=== PATIENT | female | born 1975 | race Caucasian/White ===

== ENCOUNTER 2018-07-16 13:17 | Emergency (ER) | payer MEDICAID, SELFPAY ==
--- NOTE | 2018-07-16 13:22 | W.ED.GENAD ---
Discharge Plan Disposition Patient Disposition: HOME Condition: Fair Discharge Details Chief Complaint: DentalOral Clinical Impression: Dental infection Primary Care Provider: [facility] ED Provider: Enedina Zhao Home Meds and New Rx's Prescriptions: New clindamycin HCl 150 mg capsule 450 mg PO TID Qty: 63 RF: 0 Discharge Instructions Instructions: Dental Abscess (ED) Additional Instructions: Encourage hydration. Tylenol and ibuprofen as needed for discomfort. Stop smoking. Please take clindamycin as prescribed. Even if symptoms improve, please take the entire course. Please keep upcoming appointment with dentist. If you develop fever/chills, increased pain, increased swelling or other new/worsening symptoms please seek care urgently once again. Discharge Data Discharge Date/Time-TO BE ENTERED AT DEPARTURE: 07/16/18 14:14 Medical Decision Making Patient is a 42-year-old female presenting today with chief complaint of dental pain. She reports for the past 3 days she has had pain in the #8 tooth and associated swelling and erythema. She denies any fevers or chills. States that she has been putting pain relieving gel in her dentures which has been helping with discomfort. She is been wearing also dentures that are too large or not compressing the tooth. She is scheduled to have a follow-up on the with a dentist for extraction of infected tooth. On exam, she does have notable swelling and erythema to the gums particularly on the buccal aspect of the tooth. No palpable area of fluctuance to suggest abscess. Patient will be placed on clindamycin. Encourage hydration. We discussed new/worsening symptoms when to seek care urgently once again. She will keep her appointment with dentist. All other questions and concerns were addressed she is in agreement this plan. Patient is status post tubal ligation HPI General Mode of arrival: ambulatory. Date/Time Provider Initiated Documentation: 07/16/18 13:21. Limitations to Documentation: no limitations. Information obtained by: patient and RN notes reviewed. History of Present Illness 42 year old F presents to the emergency department with the chief complaint of right upper dental pain, described as moderate, with intensity rated at 6. Quality is described as burning, and is localized to the mouth. Patient reports no radiation. Patient started experiencing this day(s) (3) and it has been constant. No relieving factors improve symptom(s), No exacerbating factors reported . Patient notes denies cough, diaphoresis, fever/chills, headaches, loss of appetite, nausea/vomiting and rash. Patient did receive the following treatments prior to arrival, NSAID Related Data Home Medications Medication Instructions Recorded Confirmed clindamycin HCl 450 mg PO TID #63 cap 07/16/18 Previous Rx's Medication Instructions Recorded clindamycin HCl 450 mg PO TID #63 cap 07/16/18 Allergies Allergy/AdvReac Type Severity Reaction Status Date / Time bee venom protein (honey bee) Allergy Anaphylaxsi Unverified 07/16/18 13:23 s sibutramine [From Meridia] Allergy Hives Unverified 07/16/18 13:30 Review of Systems Constitutional Reports as per HPI, Denies chills, Denies fatigue, Denies fever(s), Denies headache(s) and Denies poor appetite Eyes Denies change in vision and Denies irritation ENT Reports as per HPI, Reports dental pain, Denies dysphagia, Denies dizziness, Denies dry mouth, Denies ear discharge, Denies otalgia, Reports facial pain, Denies headache(s), Denies hoarseness, Denies lip swelling, Denies nasal congestion, Denies odynophagia and Denies sore throat Cardiovascular Reports as per HPI and Denies chest pain Respiratory Reports as per HPI and Denies cough Gastrointestinal Reports as per HPI, Denies dysphagia, Denies nausea, Denies odynophagia and Denies vomiting Integumentary/Breasts Reports as per HPI, Denies erythema, Denies rash and Denies skin pain Neurologic Reports as per HPI, Denies dizziness and Denies headache(s) Endocrine Denies fatigue Allergic/Immunologic Denies lip swelling [facility] Social History Smoking/Tobacco Use Status: Current every day Alcohol Intake: never Drug use: Daily Substance use type: marijuana Exam Const General: cooperative, healthy appearing, comfortable, no acute distress, well developed and well groomed Nutritional Appearance: average body habitus and well nourished Orientation: alert and awake [facility] Head: normal to inspection, normocephalic and atraumatic Ears: hearing grossly normal bilaterally, external ears normal and TM's normal bilaterally General nose exam: external nose normal and nares normal Face and sinus: normal facial exam, sinuses nontender and face symmetric Mouth: moist mucous membranes, no drooling, no muffled voice, no trismus and No restricted motion Teeth and gingiva: edentulous (one tooth remaining under dentures, #8tooth with erythema, swelling) Throat: posterior oropharynx normal, tonsils normal and uvula midline Eyes General: appearance normal, both eyes and all related structures Neck Neck: normal visual inspection, full ROM, no lymphadenopathy, supple and no anterior neck swelling Resp Effort & Inspection: normal respiratory effort, able to speak in complete sentences and no respiratory distress Auscultation: clear to auscultation bilaterally, no rales, no rhonchi and no wheezes Cardio Rate: regular rate Rhythm: regular rhythm Heart Sounds: S1 normal and S2 normal Skin General skin exam: no rashes or lesions noted Trauma: no lacerations or abrasions Neuro General: alert and awake Cognition: normal cognition Speech: speech normal Gait: normal gait Psych Appearance: grossly normal and well kempt Mental Status: mental status grossly normal Speech and Movement: speech and movement normal
[2018-07-16 13:23] VITALS: BP 123/77; PULSE 85; RESP 18; TEMP 37.1; O2SAT 98
--- NOTE | 2018-07-16 14:03 | ED.GENADUL_ITS ---
Discharge Plan Disposition Patient Disposition: HOME Condition: Fair Discharge Details Chief Complaint: DentalOral Clinical Impression: Dental infection Primary Care Provider: [facility]etteLocal ED Provider: Enedina Zhao Home Meds and New Rx's Prescriptions: New clindamycin HCl 150 mg capsule 450 mg PO TID Qty: 63 RF: 0 Discharge Instructions Instructions: Dental Abscess (ED) Additional Instructions: Encourage hydration. Tylenol and ibuprofen as needed for discomfort. Stop smoking. Please take clindamycin as prescribed. Even if symptoms improve, please take the entire course. Please keep upcoming appointment with dentist. If you develop fever/chills, increased pain, increased swelling or other new/worsening symptoms please seek care urgently once again. Discharge Data Discharge Date/Time-TO BE ENTERED AT DEPARTURE: 07/16/18 14:14 Medical Decision Making Patient is a 42-year-old female presenting today with chief complaint of dental pain. She reports for the past 3 days she has had pain in the #8 tooth and associated swelling and erythema. She denies any fevers or chills. States that she has been putting pain relieving gel in her dentures which has been helping with discomfort. She is been wearing also dentures that are too large or not compressing the tooth. She is scheduled to have a follow-up on the with a dentist for extraction of infected tooth. On exam, she does have notable swelling and erythema to the gums particularly on the buccal aspect of the tooth. No palpable area of fluctuance to suggest abscess. Patient will be placed on clindamycin. Encourage hydration. We discussed new/worsening symptoms when to seek care urgently once again. She will keep her appointment with dentist. All other questions and concerns were addressed she is in agreement this plan. Patient is status post tubal ligation HPI General Mode of arrival: ambulatory . Date/Time Provider Initiated Documentation: 07/16/18 13:21 . Limitations to Documentation: no limitations . Information obtained by: patient and RN notes reviewed . History of Present Illness 42 year old F presents to the emergency department with the chief complaint of right upper dental pain, described as moderate, with intensity rated at 6. Quality is described as burning, and is localized to the mouth. Patient reports no radiation. Patient started experiencing this day(s) (3) and it has been constant. No relieving factors improve symptom(s), No exacerbating factors reported . Patient notes denies cough, diaphoresis, fever/chills, headaches, loss of appetite, nausea/vomiting and rash. Patient did receive the following treatments prior to arrival, NSAID Related Data Home Medications Medication Instructions Recorded Confirmed clindamycin HCl 450 mg PO TID #63 cap 07/16/18 Previous Rx's Medication Instructions Recorded clindamycin HCl 450 mg PO TID #63 cap 07/16/18 Allergies Allergy/AdvReac Type Severity Reaction Status Date / Time bee venom protein (honey bee) Allergy Anaphylaxsi Unverified 07/16/18 13:23 s sibutramine [From Meridia] Allergy Hives Unverified 07/16/18 13:30 Review of Systems Constitutional Reports as per HPI, Denies chills, Denies fatigue, Denies fever(s), Denies headache(s) and Denies poor appetite Eyes Denies change in vision and Denies irritation ENT Reports as per HPI, Reports dental pain, Denies dysphagia, Denies dizziness, Denies dry mouth, Denies ear discharge, Denies otalgia, Reports facial pain, Denies headache(s), Denies hoarseness, Denies lip swelling, Denies nasal congest ion, Denies odynophagia and Denies sore throat Cardiovascular Reports as per HPI and Denies chest pain Respiratory Reports as per HPI and Denies cough Gastrointestinal Reports as per HPI, Denies dysphagia, Denies nausea, Denies odynophagia and Denies vomiting Integumentary/Breasts Reports as per HPI, Denies erythema, Denies rash and Denies skin pain Neurologic Reports as per HPI, Denies dizziness and Denies headache(s) Endocrine Denies fatigue Allergic/Immunologic Denies lip swelling [facility] Social History Smoking/Tobacco Use Status: Current every day Alcohol Intake: never Drug use: Daily Substance use type: marijuana Exam Const General: cooperative, healthy appearing, comfortable, no acute distress, well developed and well groomed Nutritional Appearance: average body habitus and well nourished Orientation: alert and awake [facility] Head: normal to inspection, normocephalic and atraumatic Ears: hearing grossly normal bilaterally, external ears normal and TM's normal bilaterally General nose exam: external nose normal and nares normal Face and sinus: normal facial exam, sinuses nontender and face symmetric Mouth: moist mucous membranes, no drooling, no muffled voice, no trismus and No restricted motion Teeth and gingiva: edentulous (one tooth remaining under dentures, #8tooth with erythema, swelling) Throat: posterior oropharynx normal, tonsils normal and uvula midline Eyes General: appearance normal, both eyes and all related structures Neck Neck: normal visual inspection, full ROM, no lymphadenopathy, supple and no anterior neck swelling Resp Effort & Inspection: normal respiratory effort, able to speak in complete sentences and no respiratory distress Auscultation: clear to auscultation bilaterally, no rales, no rhonchi and no wheezes Cardio Rate: regular rate Rhythm: regular rhythm Heart Sounds: S1 normal and S2 normal Skin General skin exam: no rashes or lesions noted Trauma: no lacerations or abrasions Neuro General: alert and awake Cognition: normal cognition Speech: speech normal Gait: normal gait Psych Appearance: grossly normal and well kempt Mental Status: mental status grossly normal Speech and Movement: speech and movement normal
== END 2018-07-16 14:14 | disposition home or self-care (01) ==
PROVIDERS: Emergency Provider Physician Assistant
DX: K04.7 Periapical abscess without sinus (principal); F17.210 Nicotine dependence, cigarettes, uncomplicated
CPT/HCPCS: 99283

== ENCOUNTER 2018-11-16 13:36 | Emergency (ER) | payer MEDICAID, SELFPAY ==
[2018-11-16 13:41] VITALS: BP 141/88; PULSE 82; RESP 18; TEMP 36.6; O2SAT 99
--- NOTE | 2018-11-16 14:39 | DI.RAD_ITS ---
EXAM: XR SHOULDER RT COMPLETE 2+V INDICATION: shoulder injury. COMPARISON: No exams were available for comparison TECHNIQUE: 2D digital imaging was performed. FINDINGS: Five views were obtained. There is no evidence of fracture or dislocation. IMPRESSION:
--- NOTE | 2018-11-16 15:40 | DI.VRAD_ITS ---
PROCEDURE INFORMATION: Exam: XR Right Shoulder Exam date and time: 11/16/2018 3:02 PM Clinical history: 43 years old, female; Pain; Shoulder; Right TECHNIQUE: Imaging protocol: XR Right shoulder. Views: 2 or more views. COMPARISON: No relevant prior studies available. FINDINGS: Bones/joints: There is no evidence of acute fracture.There is no evidence of malalignment or dislocation. Minimal degenerative changes in the glenohumeral joint Soft tissues: Normal. IMPRESSION: There is no evidence of acute fracture.There is no evidence of malalignment or dislocation. Dictated and Authenticated by: Seferino Constantino MD. Ordering:JESSE Browne MD
--- NOTE | 2018-11-17 11:42 | W.ED.FU ---
Patient presented to the emergency department yesterday with right shoulder pain. She was not evaluated by a provider but x-ray was ordered based on her chief complaint. She eloped prior to evaluation by discussion of the findings. I called the patient this morning and advised the above impression showed no evidence of acute fracture, no evidence of malalignment or dislocation. I did advise that she may return at any point for continued evaluation.
== END 2018-11-16 16:52 ==
PROVIDERS: Emergency Provider Physician Assistant
DX: M25.511 Pain in right shoulder (principal); Z53.21 Procedure and treatment not carried out due to patient leaving prior to being seen by health care provider
CPT/HCPCS: 99283; 73030